=== PATIENT | female | born 1940 | race Caucasian/White ===

== ENCOUNTER 2017-11-04 11:58 | Inpatient (IN) | payer MEDICARE, BC, OTHER ==
[~2017-11-04] VITALS: Ht 167.6 cm; Wt 52.2 kg
[2017-11-04 11:58] VITALS: BP 148/78
[~2017-11-04 11:58] MED LIST: AMBIEN 5 MG TABL5 M1 PO; ASPIR 8181 MG PO; ASPIRIN EC325 M1 PO; BENADRYL25 MG PO; CEFTIN 250 MG250 MG PO; CELEXA20 MG PO; CIPROFLOXACIN500 M1 PO; COREG3.125 MG PO; COREG6.25 MG PO; ENOXAPARIN40 MG/0.1 SUBQ; HYDROCODON-ACE1 EAC7 PO; HYDROCODONE-AP1 EAC6 PO; LIPITOR 20 MG T20 M1 PO; LIPITOR20 MG PO; LISINOPRIL5 MG PO; MELATONIN10 M2 PO; MILK OF MA2400 MG/10 PO; MULTIVITAMINS1 EAC7; MYLANTA PO; NICOTINE TRANSD21 M1 TRANSDERM; NORCO 5-325 TA1 EACH PO; ONDANSETRON HCL4 M2 PO; PHENERGAN 25 MG25 M1 PO; PLAVIX 75 MG TA75 M1 PO; POTASSIUM99 M1 PO; TAMSULOSIN HCL0.4 M1 PO; TRINATE TABLET1 TAB PO; TYLENOL325 MG PO; XANAX 0.5 MG0.5 MG PO; XARELTO10 MG PO
[2017-11-04 12:32] LABS: URINE BILIRUBIN NEGATIVE (Negative); URINE BLOOD 1+ (Negative); URINE CLARITY CLEAR; URINE COLOR YELLOW; URINE GLUCOSE-RANDOM NEGATIVE (Negative); URINE KETONES NEGATIVE (Negative); URINE LEUKOCYTES-REFLEX NEGATIVE (Negative); URINE NITRITE-REFLEX NEGATIVE (Negative); URINE PROTEIN NEGATIVE (Negative); URINE SPECIFIC GRAVITY <= 1.005 (1.005-1.030); URINE UROBILINOGEN 0.2 E.U./dl (0.2-1.0)
[2017-11-04 12:36] LABS: BACTERIA-REFLEX None Seen /HPF (None Seen); CASTS None Seen /LPF (None Seen); CRYSTALS None Seen /LPF (None Seen); SQUAMOUS >10 Many /LPF (0-3); URINE RBC 0-2 Rare /HPF (0-2); URINE WBC-REFLEX 0-5 Rare /HPF (0-5)
[2017-11-04 13:27] LABS: ABSOLUTE BASOPHILS 0.1 thou/uL (0.0-0.2); ABSOLUTE EOSINOPHILS 0.1 thou/uL (0.0-0.7); ABSOLUTE LYMPHOCYTES 1.6 thou/uL (0.8-5.3); ABSOLUTE MONOCYTES 0.5 thou/uL (0.0-1.2); ABSOLUTE NEUTROPHILS 3.6 thou/uL (1.6-8.1); BASOPHILS 1.3 %; EOSINOPHILS 1.4 %; HEMATOCRIT 41.6 % (37.0-47.0); HEMOGLOBIN 14.2 gm/dL (12.0-15.0); LYMPHOCYTES 27.3 %; MCHC 34.2 g/dL (28.0-37.0); MCV 90.7 fL (80.0-100.0); MPV 9.6 fl. (7.2-11.1); NUCLEATED RBCS 0 /100WBC; PLATELET COUNT* 171 thou/uL (150-400); RBC 4.59 mil/uL (4.20-5.00); RDW-CV 15.1 % (10.5-14.5); WBC 5.9 thou/uL (4.0-11.0)
[2017-11-04 13:36] LABS: ANION GAP 9 mmol/L (7-16); BUN 12 mg/dL (7-18); CHLORIDE 104 mmol/L (98-107); CO2 27 mmol/L (21-32); CREATININE 1.1 mg/dL (0.6-1.3); GLUCOSE 100 mg/dL (70-99); POTASSIUM 3.8 mmol/L (3.5-5.1); SODIUM 140 mmol/L (136-145)
[2017-11-04 13:44] LABS: ALBUMIN 3.6 g/dL (3.4-5.0); ALKALINE PHOSPHATASE 112 U/L (46-116); SGOT 23 U/L (15-37); SGPT 17 U/L (30-65); TOTAL BILIRUBIN 0.4 mg/dL (<0.1-1.0); TROPONIN-I LEVEL <0.06 ng/mL (<0.06)
[2017-11-04 19:30] VITALS: BP 162/71
[2017-11-04 19:40] VITALS: BP 151/74
[2017-11-05 00:02] VITALS: BP 162/71
--- NOTE | 2017-11-05 06:13 | NUR ---
ASSESSMENT COMPLETE. PT ADMITTED WITH CANAL STENOSIS AND INTRACTABLE BACK PAIN. PT GIVEN PRN PAIN MEDICATION ONCE DURING THE NIGHT. PT REPORTS PAIN IN 2/10 WHEN SHE IS NOT MOVING. PT IS BEDREST AT THIS TIME. PT IS ON ROOM AIR WITH [place] SATS. PT DENIES N/V. PT HAS IV IN LEFT WRIST WITH FLUIDS INFUSING. SKIN W/D/I. PT IS SLEEPING AT THIS TIME. SEE ASSESSMENT AND VITALS FOR OTHER DETAILS. CALL LIGHT WITHIN REACH, WILL CONTINUE TO MONITOR
[2017-11-05 08:30] VITALS: BP 108/69
[2017-11-05] MEDS ORDERED: HYDROCODON-ACE1 EAC7 PO (12:04)
[2017-11-05] MEDS ORDERED: PREDNISONE 10 M10 MG PO (12:04)
[2017-11-05 12:29] VITALS: BP 108/69
[2017-11-05] MEDS ORDERED: TYLENOL325 MG PO (12:34)
[2017-11-05] MEDS ORDERED: MELATONIN5 M1 PO (12:34)
[2017-11-05 14:15] VITALS: BP 108/69
--- NOTE | 2017-11-05 14:21 | NUR ---
SW met with pt to complete initial assessment and to discuss safe dc planning. Pt is home with dtr support and pt says that her dtr wants to be able to move back to her own home soon. Pt said she is thankful for her dtr's support and assistance. TABBY discussed an order for RW and pt agreeable and prefers [facility]. SW faxed order and referral to [facility] and [facility] and called and spoke with Kalina who accepted the referral. Pt has no hx of HH or SNF and no orders for HH at this time. Pt said her family would be here to pick her up to provide ride home at 17:00 or shortly thereafter.
[2017-11-05 16:00] VITALS: BP 174/77
[2017-11-05 17:13] VITALS: BP 174/77
--- NOTE | 2017-11-05 18:39 | NUR ---
PATIENT'S FAMILY HERE TO TRANSPORT FAMILY HOME. PATIENT GIVEN DISCHARGE INSTRUCTIONS AND PRESCRIPTIONS FOR PAIN MEDS. PATIENT VERBALIZED UNDERSTANDING. IV REMOVED. PATIENT ESCORTED OFF NURSING UNIT VIA WHEELCHAIR WITH NURSING STAFF. DISHCARGED TO HOME WITH ALL BELONGINGS.
== END 2017-11-05 18:41 | disposition home or self-care (01) | DRG 552 ==
LOC: M.ERS 11:58 → M.TBA-ER 17:07 → M.3W 17:07
PROVIDERS: Physician Assistant; ADMIT Internal Medicine
DX: M48.061 Spinal stenosis, lumbar region without neurogenic claudication (principal); I50.22 Chronic systolic (congestive) heart failure; M47.816 Spondylosis without myelopathy or radiculopathy, lumbar region; I25.10 Atherosclerotic heart disease of native coronary artery without angina pectoris; J44.9 Chronic obstructive pulmonary disease, unspecified; F32.9 Major depressive disorder, single episode, unspecified; F17.210 Nicotine dependence, cigarettes, uncomplicated; Z79.899 Other long term (current) drug therapy; Z90.49 Acquired absence of other specified parts of digestive tract